=== PATIENT | male | born 2000 | race Caucasian/White ===

== ENCOUNTER → 2024-10-22 10:31 | Outpatient (BNVA) | payer OTHER, SELFPAY | PROVIDERS: PCP Pediatrics; Visit Provider Physician Assistant Medical | DX: S43.52XA Sprain of left acromioclavicular joint, initial encounter (principal); S46.212A Strain of muscle, fascia and tendon of other parts of biceps, left arm, initial encounter; X50.0XXA Overexertion from strenuous movement or load, initial encounter | CPT/HCPCS: 73030; 99202 ==

== ENCOUNTER → 2024-10-29 15:07 | Outpatient (BNVA) | payer OTHER, SELFPAY | PROVIDERS: PCP Pediatrics; Visit Provider Physician Assistant Medical | DX: S46.212D Strain of muscle, fascia and tendon of other parts of biceps, left arm, subsequent encounter (principal); S43.52XD Sprain of left acromioclavicular joint, subsequent encounter; X50.0XXD Overexertion from strenuous movement or load, subsequent encounter | CPT/HCPCS: 99213 ==

== ENCOUNTER → 2024-11-12 10:00 | Outpatient (BNVA) | payer OTHER, SELFPAY | PROVIDERS: Visit Provider Physician Assistant Medical | DX: S43.52XD Sprain of left acromioclavicular joint, subsequent encounter (principal); X50.0XXD Overexertion from strenuous movement or load, subsequent encounter | CPT/HCPCS: 99213 ==

== ENCOUNTER → 2024-12-03 10:31 | Outpatient (BNVA) | payer OTHER, SELFPAY | PROVIDERS: Visit Provider Physician Assistant Medical | DX: S43.402D Unspecified sprain of left shoulder joint, subsequent encounter (principal); S29.011D Strain of muscle and tendon of front wall of thorax, subsequent encounter; X50.0XXD Overexertion from strenuous movement or load, subsequent encounter | CPT/HCPCS: 99213 ==

== ENCOUNTER → 2024-12-05 19:00 | Outpatient (BNV) | payer OTHER, SELFPAY | PROVIDERS: Visit Provider Radiology Diagnostic Radiology | DX: M25.412 Effusion, left shoulder (principal) | CPT/HCPCS: 73221 ==

== ENCOUNTER 2024-12-05 19:51 | Outpatient (REF) | payer OTHER, SELFPAY ==
--- NOTE | ~2024-12-05 | MR_ITS ---
CLINICAL HISTORY: PAIN TO AXILLARY AREA MR left shoulder without gadolinium Comparison: 10/22/2024 Findings: No acute fractures. No pathologic bone lesions. No significant arthritic changes. Type I acromion without downsloping. Trace fluid is seen within the subacromial subdeltoid bursa. A discrete rotator cuff tear is not identified. No rotator cuff tears. The long head of biceps is intact. Glenoid labrum is intact. There is mild thickening of the inferior glenohumeral ligament. IMPRESSION: 1. Trace fluid is seen within the subacromial subdeltoid bursa. A discrete rotator cuff tear is not identified. 2. There is mild thickening of the inferior glenohumeral ligament. This document has been electronically signed by: Ken Canas MD on 12/07/2024 11:03:09
--- OUTSIDE RECORDS SUMMARY | 2024-12-05 19:57 | XMS_ITS | Clinical Summary ---
Author Organization [employer] [facility] Address [address] [place] [address] Care Team Providers Care Valuation Consultant Name Role Phone Unavailable Primary Care Provider Unavailabl e Encounters Date Type Department Care Team Description 09/04/2024 Population Health Risk Score [facility] Care [facility] ([facility]) Department [address] [facility] [address] [place] [address] Provider, Population Health Generic from Last 3 Months Social History Tobacco Use Types Packs/Day Years Used Date Smoking Tobacco: Never Assessed Sex and Gender Information Value Date Recorded Sex Assigned at Not on file Legal Sex Male 11:36 AM EST Gender Identity Not on file Sexual Orientation Not on file Plan of Treatment Health Maintenance Due Date Last Done Comments Depression Screening 1998 HIV Screening 1998 SDOH Screening 1998 Disability Screening 1998 Alcohol/Substance Use Screening 2010 Tobacco Screening 2010 Family Planning (PISQ) 2013 HPV Vaccines (1 - Male 3-dos e series) 2013 Hepatitis C Screening 2016 DTaP/Tdap/Td Vaccines (1 - Tdap) 2017 Hepatitis B Vaccines (1 of 3 - 19+ 3-dose series) 2017 COVID-19 Vaccine ( - 2023-2 5 season) 2024 Influenza Vaccine (Season Ended) 2025 Zoster Vaccines (1 of 2) 2048 RSV Patients and Pa tients Aged 60 years or older (1 - 1-dose 75+ series) 2073 HIB Vaccines Aged Out No longer eligi ble based on patient's age to complete this topic Hepatitis A Vaccines Aged Out No long er eligible based on patient's age to complete this topic IPV Vaccines Aged Out No longer eligi ble based on patient's age to complete this topic Meningococcal B Vaccine Aged Out No l onger eligible based on patient's age to complete this topic Meningococcal Vaccine Aged Out No roro halima eligible based on patient's age to complete this topic Pneumococcal Vaccine: Pediat rics (0 to 5 Years) and At-Risk Patients (6 to 49) Years) Aged Out No longer eligible b ased on patient's age to complete this topic RSV under 20 months Aged Out No longe r eligible based on patient's age to complete this topic Rotavirus Vaccines Aged Out No longer eligible based on patient's age to complete this topic
== END 2024-12-05 19:52 | disposition home or self-care (01) ==
LOC: HO.MRI 19:51
PROVIDERS: Visit Provider Internal Medicine
DX: M25.512 Pain in left shoulder (principal)
CPT/HCPCS: 73221

== ENCOUNTER → 2024-12-08 13:43 | Outpatient (BNVA) | payer OTHER, SELFPAY | PROVIDERS: Visit Provider Physician Assistant Medical | DX: S43.492D Other sprain of left shoulder joint, subsequent encounter (principal); X50.0XXD Overexertion from strenuous movement or load, subsequent encounter; M75.52 Bursitis of left shoulder | CPT/HCPCS: 99213 ==

== ENCOUNTER 2024-12-18 09:00 | Outpatient (RCR) | payer OTHER, SELFPAY | END 2025-01-29 11:46 | disposition home or self-care (01) | LOC: HO.PT 09:00 | PROVIDERS: Visit Provider Physician Assistant Medical | DX: S46.912D Strain of unspecified muscle, fascia and tendon at shoulder and upper arm level, left arm, subsequent encounter (principal); S29.011D Strain of muscle and tendon of front wall of thorax, subsequent encounter | CPT/HCPCS: 97110; 97161; 97530; 97535 ==

== ENCOUNTER → 2024-12-29 09:45 | Outpatient (BNVA) | payer OTHER, SELFPAY | PROVIDERS: Visit Provider Physician Assistant Medical | DX: M75.52 Bursitis of left shoulder (principal) | CPT/HCPCS: 99213 ==

== ENCOUNTER → 2025-01-26 09:17 | Outpatient (BNVA) | payer OTHER, SELFPAY | PROVIDERS: Visit Provider Physician Assistant Medical | DX: M75.52 Bursitis of left shoulder (principal); Z02.79 Encounter for issue of other medical certificate | CPT/HCPCS: 99213 ==